=== PATIENT | female | born 1995 | race Caucasian/White ===

== ENCOUNTER 2019-05-22 | Emergency (ER) | payer OTHER ==
[~2019-05-22] MED LIST: AMOXIL400 MG/5 M OR; INDOCIN25 MG PO; NO HOME MED
[2019-05-22 18:52] LABS: URINE BLOOD DIPSTICK TRACE-INTACT (NEGATIVE); URINE COLOR YELLOW; URINE GLUCOSE - DIPSTICK NEGATIVE (NEGATIVE); URINE KETONE NEGATIVE (NEGATIVE); URINE LEUK ESTERASE NEGATIVE (NEGATIVE); URINE NITRITE - DIPSTICK NEGATIVE (Negative); URINE PH 7.5 (4.5-8.0); URINE PROTEIN - DIPSTICK TRACE mg/dL (NEG-TRACE); URINE SPECIFIC GRAVITY 1.015; URINE UROBILINOGEN - DIPSTICK 0.2 E.U./dL (0.2)
[2019-05-22 18:54] LABS: URINE BILIRUBIN - DIPSTICK NEGATIVE (NEGATIVE)
[2019-05-22 18:55] LABS: HCG SERUM/URINE (NEG/POS) NEGATIVE (NEGATIVE)
== END 2019-05-22 19:25 | disposition home or self-care (01) | DRG 866 ==
PROVIDERS: Family Medicine
DX: B34.9 Viral infection, unspecified (principal)